=== PATIENT | female | born 1980 | race Caucasian/White ===

== ENCOUNTER 2017-05-08 22:44 | Emergency (ER) | payer BC, OTHER ==
[~2017-05-08] VITALS: Ht 165.1 cm; Wt 88.5 kg
[2017-05-08] MEDS ORDERED: MISCELLANEOUS MED XX ONE (23:15)
[2017-05-08] MEDS ORDERED: HUMALOG 100 UNIT/ML (23:20)
[2017-05-08] MEDS ORDERED: BUPROPION HCL XL 300 MG TABLET (23:20)
[2017-05-08] MEDS ORDERED: INSULIN LISPRO 1000 UNITS/10 ML VIAL(HUMALOG) SQ ONE (23:33)
== END 2017-05-08 23:26 | disposition home or self-care (01) ==
LOC: ER 22:45
DX: E11.9 Type 2 diabetes mellitus without complications (principal); Z79.4 Long term (current) use of insulin; Z88.0 Allergy status to penicillin; Z88.8 Allergy status to other drugs, medicaments and biological substances
CPT/HCPCS: A4663; J1815

== ENCOUNTER 2017-06-27 23:11 | Emergency (ER) | payer BC, OTHER ==
[~2017-06-27] VITALS: Ht 165.1 cm; Wt 88.5 kg
[~2017-06-27 23:11] MED LIST: BUPROPION HCL XL 300 MG TABLET; HUMALOG 100 UNIT/ML
[2017-06-27] MEDS ORDERED: IV NORMAL SALINE 1000 ML BAG IV ONE (23:15)
[2017-06-27 23:52] LABS: BASOPHILS # (AUTO) 0.1 K/uL (0.0-8.0); EOSINOPHILS # (AUTO) 0.3 K/uL (0.0-0.7); EOSINOPHILS % (AUTO) 3.9 % (0.0-7.0); HEMATOCRIT 38.9 % (31.2-41.9); LYMPHOCYTES % (AUTO) 24.6 % (20.5-51.5); MEAN CORPUSCULAR HEMOGLOBIN 30.2 uug (24.7-32.8); MEAN CORPUSCULAR HGB CONC 33 g/dL (32.3-35.6); MEAN CORPUSCULAR VOLUME 90.7 fL (75.5-95.3); MONOCYTES # (AUTO) 0.6 K/uL (2.0-10.0); MONOCYTES % (AUTO) 7.1 % (0.0-11.0); NEUTROPHILS % (AUTO) 63.4 % (38.5-71.5); PLATELET COUNT (AUTO) 282 K/uL (179-408); RED BLOOD CELL COUNT(AUTO) 4.28 MIL/uL (3.63-4.92); WHITE BLOOD COUNT (AUTO) 7.9 K/uL (3.8-11.8)
[2017-06-28 00:02] LABS: CREATININE 0.9 mg/dL (0.6-1.3); POTASSIUM 3.4 mmol/L (3.5-5.1)
--- NOTE | 2017-06-28 01:40 | NUR ---
Pt in bed, no acute signs of distress.
--- NOTE | 2017-06-28 04:40 | NUR ---
Pt reports started having a headache on the posterior of her head, stabbing pain. MD notified.
[2017-06-28] MEDS ORDERED: IV NORMAL SALINE 1000 ML BAG IV ONE (04:45)
[2017-06-28] MEDS ORDERED: KETOROLAC TROMETHAMINE 30 MG INJ IVP ONE (05:00)
[2017-06-28] MEDS ORDERED: KETOROLAC TROMETHAMINE 30 MG INJ ONE (05:25)
--- NOTE | 2017-06-28 06:20 | NUR ---
Pt reports started having pain from the neck and back. notified.
[2017-06-28] MEDS ORDERED: HYDROCODONE/APAP 10-325 MG TABLET PO ONE (06:30)
[2017-06-28] MEDS ORDERED: HYDROCODONE/APAP 10-325 MG TABLET ONE (06:34)
--- NOTE | 2017-06-28 07:20 | NUR ---
Patient discharged to home in stable conditon. Written and verbal after care instructions given. Patient verbalizes understanding of instructions. Patient ambulated out of ER with steady gait, VSS, no acute signs of distress, all belongings taken.
[2017-06-28 07:21] VITALS: BP 125/60
== END 2017-06-28 07:22 | disposition home or self-care (01) ==
LOC: ER 23:12
DX: E86.0 Dehydration (principal); E11.9 Type 2 diabetes mellitus without complications; Z88.0 Allergy status to penicillin; Z88.8 Allergy status to other drugs, medicaments and biological substances; Z79.4 Long term (current) use of insulin; Z79.899 Other long term (current) drug therapy
CPT/HCPCS: 36415; 85025; 93005; A4663; J1885; J7030